=== PATIENT | male | born 1985 | race Caucasian/White ===

== ENCOUNTER 2024-06-07 06:18 | Emergency (ER) | payer OTHER ==
--- NOTE | 2024-06-07 06:48 | ED ---
General Adult HPI - General Chief complaint: Extremity Injury, Lower Stated complaint: rt ankle injury Time Seen by Provider: 06/07/24 06:26 Source: patient, RN notes reviewed Mode of arrival: ambulatory Limitations: no limitations - History of Present Illness Initial comments: 39-year-old male presents to the emergency department for evaluation of right ankle pain. Patient reports that 3 days ago he was cleaning up his bedroom when he almost stepped on a kids toy. An attempt to avoid the toy he moved his foot and hit his ankle on something else in the bedroom. He states that initially had mild pain but it has gotten worse. He wrote that he has had to stay off of this foot because of this. He admits to taking Tylenol and Motrin occasionally over the past 2 days. This does not seem to help much. - Related Data Allergies Allergy/AdvReac Type Severity Reaction Status Date / Time diphenhydramine AdvReac Rash/Hives Verified 06/07/24 06:23 [From Rosalia] Review of Systems ROS Statement: Those systems with pertinent positive or pertinent negative responses have been documented in the HPI. ROS Other: All systems not noted in ROS Statement are negative. Past Medical History Past Medical History: No Reported History History of Any Multi-Drug Resistant Organisms: None Reported Past Surgical History: Orthopedic Surgery Additional Past Surgical History / Comment(s): Right knee surgery Past Psychological History: No Psychological Hx Reported Smoking Status: Current every day smoker Past Alcohol Use History: Occasional Past Drug Use History: Marijuana General Exam Limitations: no limitations General appearance: alert, in no apparent distress Head exam: Present: atraumatic, normocephalic, normal inspection Eye exam: Present: normal appearance, PERRL, EOMI. Absent: scleral icterus, conjunctival injection, periorbital swelling Extremities exam: Present: full ROM, tenderness (medial right ankle swelling and TTP ), normal capillary refill. Absent: pedal edema, joint swelling, calf tenderness Neurological exam: Present: alert, oriented X3 Psychiatric exam: Present: normal affect, normal mood Skin exam: Present: warm, dry, intact, normal color. Absent: rash Course Vital Signs 06/07/24 06:19 Temperature 97.9 F Pulse Rate 85 Respiratory 16 Rate Blood Pressure 154/98 O2 Sat by Pulse 97 Oximetry Medical Decision Making - Medical Decision Making Was pt. sent in by a medical professional or institution (Dr., PA, [employer]ER, urgent care, hospital, or correction...) When possible be specific @ -No Did you speak to anyone other than the patient for history (EMS, parent, family, police, friend...)? What history was obtained from this source @ -No Did you review nursing and triage notes (agree or disagree)? Why? @ -I reviewed and agree with nursing and triage notes Were old charts reviewed (outside hosp., previous admission, EMS record, old EKG, old radiological studies, urgent care reports/EKG's, correction records)? Report findings @ -No old charts were reviewed Differential Diagnosis (chest pain, altered mental status, abdominal pain women, abdominal pain men, vaginal bleeding, weakness, fever, dyspnea, syncope, headache, dizziness, GI bleed, back pain, seizure, CVA, palpatations, mental health, musculoskeletal)? @ -Differential Musculoskeletal Muscular strain, contusion, ligament sprain, fracture, arthritis, septic arthritis, bursitis, cellulitis, muscle spasm, nerve compression, DVT, arterial occlusion, herpes zoster, electrolyte abnormality, tumor.... This is not meant to be in all inclusive list EKG interpreted by me (3pts min.). @ -None X-rays interpreted by me (1pt min.). @ -X-rays of the right ankle showed no acute fracture CT interpreted by me (1pt min.). @ -None done U/S interpreted by me (1pt. min.). @ -None done What testing was considered but not performed or refused? (CT, X-rays, U/S, labs)? Why? @ -None What meds were considered but not given or refused? Why? @ -None Did you discuss the management of the patient with other professionals (professionals i.e. HIRAM Jackson, E[employer]SEMBLER, lab, RT, psych nurse, social media developer, cardiac exercise specialist, teacher, purchasing officer, therapeutic case manager)? Give summary @ -No Was smoking cessation discussed for >3mins.? @ -No Was critical care preformed (if so, how long)? @ -No Were there social determinants of health that impacted care today? How? (Homelessness, low income, unemployed, alcoholism, drug addiction, transportation, low edu. Level, literacy, decrease access to med. care, fpc, rehab)? @ -No Was there de-escalation of care discussed even if they declined (Discuss DNR or withdrawal of care, Hospice)? DNR status @ -No What co-morbidities impacted this encounter? (DM, HTN, Smoking, COPD, CAD, Cancer, CVA, ARF, Chemo, Hep., AIDS, mental health diagnosis, sleep apnea, morbid obesity)? @ -None Was patient admitted / discharged? Hospital course, mention meds given and route, prescriptions, significant lab abnormalities, going to OR and other pertinent info. @ -Discharge. Patient presented the emergency department for evaluation of right ankle pain. X-rays obtained revealing no acute fracture or dislocation. Patient already has a brace at home that he is using. He was provided a dose of Toradol in the ED which she reports helped his pain significantly. He will be discharged home. Advised follow-up with his PCP. He is understanding agreeable with plan. Patient stable at time of discharge. Case discussed with Dr. Chowdhury. Undiagnosed new problem with uncertain prognosis? @ -No Drug Therapy requiring intensive monitoring for toxicity (Heparin, Nitro, Insulin, Cardizem)? @ -No Were any procedures done? @ -No Diagnosis/symptom? @ -ankle contusion Acute, or Chronic, or Acute on Chronic? @ -Acute Uncomplicated (without systemic symptoms) or Complicated (systemic symptoms)? @ -Uncomplicated Side effects of treatment? @ -No Exacerbation, Progression, or Severe Exacerbation? @ -No Poses a threat to life or bodily function? How? (Chest pain, [place], [place], pneumonia, PE, COPD, DKA, ARF, appy, cholecystitis, CVA, Diverticulitis, Homicidal, Suicidal, threat to staff... and all critical care pts) @ -No Disposition Clinical Impression: Ankle contusion Disposition: HOME SELF-CARE Condition: Stable Instructions (If sedation given, give patient instructions): P.R.I.C.E. Treatment (ED) Additional Instructions: Please utilize acetaminophen and ibuprofen for pain. Elevate the foot and ankle on the pillow. Ice to the area of injury. Utilize your brace. Follow-up with your primary care provider. Return to the emergency department for new or worsening symptoms. Is patient prescribed a controlled substance at d/c from ED?: No Referrals: Cristina Whitlock MD [Primary Care Provider] - 1-2 days
--- NOTE | 2024-06-07 07:05 | XR ---
EXAMINATION TYPE: XR ankle complete RT DATE OF EXAM: 06/07/2024 6:49 AM COMPARISON: None CLINICAL INDICATION: Male, 39 years old with history of medial pain; PHH, pain TECHNIQUE: XR ankle complete RT; frontal, lateral and oblique projections. FINDINGS: There is no evidence of acute osseous pathology. No evidence of subluxation or dislocation. Kager's fat pad is intact. Soft tissues are within normal limits. No radiopaque foreign bodies are identified . IMPRESSION: No evidence of acute fracture. [facility], , 06/07/2024 7:02 AM
[2024-06-07] MEDS: KETOROLAC 15 MG/ML 1 ML VIAL IM STA (07:17)
[2024-06-07 07:46] VITALS: BP 149/96; PULSE 81; RESP 20; TEMP 98.4
== END 2024-06-07 07:45 | disposition home or self-care (01) ==
LOC: EC 06:18
DX: S90.00XA Contusion of unspecified ankle, initial encounter (principal); F17.200 Nicotine dependence, unspecified, uncomplicated; W18.49XA Other slipping, tripping and stumbling without falling, initial encounter
CPT/HCPCS: 73610; 99283; 96372; J1885